=== PATIENT | female | born 1940 | race Native Hawaiian/Other Pacific Islander ===

== ENCOUNTER 2016-12-24 16:21 | Emergency (ER) | payer OTHER ==
[~2016-12-24] VITALS: Ht 162.6 cm; Wt 83.9 kg
[2016-12-24 17:02] LABS: PLATELET COUNT 290 K/uL (152-353)
[2016-12-24 17:11] LABS: POTASSIUM 3.7 mmol/L (3.6-5.2)
[2016-12-24 18:35] VITALS: BP 96/55; TEMP 97.9
== END 2016-12-24 18:35 | disposition home or self-care (01) ==
LOC: ED 16:21
PROVIDERS: Emergency Medicine
DX: S20.212A Contusion of left front wall of thorax, initial encounter (principal); S20.211A Contusion of right front wall of thorax, initial encounter; S50.812A Abrasion of left forearm, initial encounter; R00.1 Bradycardia, unspecified; V43.62XA Car passenger injured in collision with other type car in traffic accident, initial encounter; Y92.89 Other specified places as the place of occurrence of the external cause
CPT/HCPCS: 36415; 80053; 82550; 84484; 85027; 85610; 93005; 99283

== ENCOUNTER 2017-12-21 10:08 | Outpatient (CLI) | payer OTHER | END 2017-12-21 21:39 | disposition home or self-care (01) | LOC: LABW 10:08 | DX: Z79.01 Long term (current) use of anticoagulants (principal) | CPT/HCPCS: 36415; 85610 ==

== ENCOUNTER 2018-01-21 10:44 | Outpatient (CLI) | payer OTHER | END 2018-01-21 22:09 | disposition home or self-care (01) | LOC: LABW 10:44 | DX: Z79.01 Long term (current) use of anticoagulants (principal) | CPT/HCPCS: 36415; 85610 ==

== ENCOUNTER 2018-02-25 10:50 | Outpatient (CLI) | payer OTHER | END 2018-02-25 19:41 | disposition home or self-care (01) | LOC: LABW 10:50 | DX: Z79.01 Long term (current) use of anticoagulants (principal) | CPT/HCPCS: 36415; 85610 ==

== ENCOUNTER 2018-03-30 10:10 | Outpatient (CLI) | payer OTHER | END 2018-03-30 21:05 | disposition home or self-care (01) | LOC: LABW 10:10 | DX: Z79.01 Long term (current) use of anticoagulants (principal) | CPT/HCPCS: 36415; 85610 ==

== ENCOUNTER 2018-04-22 10:09 | Outpatient (CLI) | payer OTHER ==
[2018-04-22 10:58] LABS: PLATELET COUNT 282 K/uL (152-353)
[2018-04-22 11:01] LABS: POTASSIUM 4.1 mmol/L (3.6-5.2)
[2018-04-22 12:13] LABS: PARTIAL THROMBOPLASTIN TIME 44.3 SECONDS (24.5-33.6)
== END 2018-04-22 21:43 | disposition home or self-care (01) ==
LOC: LABW 10:09
PROVIDERS: Radiology Diagnostic Radiology
DX: Z01.811 Encounter for preprocedural respiratory examination (principal); Z01.810 Encounter for preprocedural cardiovascular examination; I82.523 Chronic embolism and thrombosis of iliac vein, bilateral
CPT/HCPCS: 36415; 80048; 85027; 85610; 85730; 93005

== ENCOUNTER 2019-10-12 08:15 | Outpatient (CLI) | payer OTHER ==
[~2019-10-12 08:15] MED LIST: B121000 MCG PO; ELIQUIS5 MG PO; FELO5TAB PO; FOLIC ACID800 MC1 PO; FURO40TA93 PO; HYZAAR1 TA2 PO; LEVO0.1T6 PO; METO100T37 PO; OMEP40CA PO; ROSU10TA PO; ST JOSEPH LOW D81 MG PO
== END 2019-10-12 19:15 | disposition home or self-care (01) ==
LOC: US 08:15
DX: R10.13 Epigastric pain (principal)

== ENCOUNTER 2019-10-24 08:11 | Outpatient (CLI) | payer OTHER | END 2019-10-24 19:21 | disposition home or self-care (01) | LOC: CT 08:11 | DX: R10.11 Right upper quadrant pain (principal) ==

== ENCOUNTER 2019-11-08 19:16 | Emergency (ER) | payer OTHER ==
[~2019-11-08] VITALS: Ht 162.6 cm; Wt 83.9 kg
[2019-11-08 23:02] LABS: PLATELET COUNT 303 K/uL (152-353)
[2019-11-08 23:49] LABS: PARTIAL THROMBOPLASTIN TIME 25.6 SECONDS (24.5-33.6)
[2019-11-08 23:59] VITALS: BP 141/46; TEMP 98.9
== END 2019-11-08 23:59 | disposition short-term general hospital (02) ==
LOC: ED 19:16
PROVIDERS: Emergency Medicine Emergency Medical Services
DX: S06.320A Contusion and laceration of left cerebrum without loss of consciousness, initial encounter (principal); S60.943A Unspecified superficial injury of left middle finger, initial encounter; S60.947A Unspecified superficial injury of left little finger, initial encounter; S60.945A Unspecified superficial injury of left ring finger, initial encounter; Z79.02 Long term (current) use of antithrombotics/antiplatelets; Z51.81 Encounter for therapeutic drug level monitoring; W01.198A Fall on same level from slipping, tripping and stumbling with subsequent striking against other object, initial encounter; Y92.89 Other specified places as the place of occurrence of the external cause
CPT/HCPCS: 36415; 80053; 85027; 85610; 85730; 99283

== ENCOUNTER 2019-11-30 22:09 | Emergency (ER) | payer OTHER ==
[~2019-11-30] VITALS: Ht 162.6 cm; Wt 83.9 kg
[2019-11-30 23:03] LABS: PLATELET COUNT 332 K/uL (152-353)
[2019-11-30 23:07] LABS: POTASSIUM 4.1 mmol/L (3.6-5.2)
[2019-12-01 00:27] VITALS: BP 152/50; TEMP 97.9
== END 2019-12-01 00:27 | disposition home or self-care (01) ==
LOC: ED 22:09
PROVIDERS: Emergency Medicine
DX: K82.8 Other specified diseases of gallbladder (principal)
CPT/HCPCS: 36415; 80053; 82150; 82550; 82553; 83690; 84484; 85027; 93005; 96374; 96375; 99284; J1885; J2175; J2405

== ENCOUNTER 2019-12-03 15:09 | Emergency (ER) | payer OTHER ==
[~2019-12-03] VITALS: Ht 162.6 cm; Wt 83.9 kg
[2019-12-03 15:20] VITALS: TEMP 98.9
[2019-12-03 17:02] LABS: PLATELET COUNT 300 K/uL (152-353)
[2019-12-03 17:12] LABS: POTASSIUM 3.6 mmol/L (3.6-5.2)
[2019-12-03 18:00] VITALS: BP 135/69
== END 2019-12-03 18:00 | disposition home or self-care (01) ==
LOC: ED 15:09
PROVIDERS: Family Medicine
DX: K80.20 Calculus of gallbladder without cholecystitis without obstruction (principal)
CPT/HCPCS: 36415; 80053; 82150; 83690; 85027; 93005; 96374; 99284; J2270

== ENCOUNTER 2019-12-22 08:09 | Outpatient (CLI) | payer OTHER ==
[2019-12-22 09:25] LABS: POTASSIUM 3.3 mmol/L (3.6-5.2)
[2019-12-22 10:25] LABS: PLATELET COUNT 526 K/uL (152-353)
== END 2019-12-22 21:02 | disposition home or self-care (01) ==
LOC: LABW 08:09
PROVIDERS: Internal Medicine
DX: I10 Essential (primary) hypertension (principal); E03.8 Other specified hypothyroidism; E53.8 Deficiency of other specified B group vitamins; E61.1 Iron deficiency
CPT/HCPCS: 36415; 80048; 80061; 80076; 82306; 82728; 82746; 82747; 83540; 83550; 84443; 84466; 85027

== ENCOUNTER 2020-01-18 08:24 | Outpatient (CLI) | payer OTHER ==
[2020-01-18 08:56] LABS: POTASSIUM 3.5 mmol/L (3.6-5.2)
[2020-01-18 10:15] LABS: PLATELET COUNT 321 K/uL (152-353)
== END 2020-01-18 20:10 | disposition home or self-care (01) ==
LOC: LABW 08:24
PROVIDERS: Internal Medicine
DX: N18.3 Chronic kidney disease, stage 3 (moderate) (principal)
CPT/HCPCS: 36415; 80053; 81000; 82330; 82570; 83735; 83970; 84100; 84155; 85027

== ENCOUNTER 2020-04-16 08:26 | Outpatient (CLI) | payer OTHER ==
[2020-04-16 09:29] LABS: POTASSIUM 4.4 mmol/L (3.6-5.2)
== END 2020-04-16 21:23 | disposition home or self-care (01) ==
LOC: LABW 08:26
PROVIDERS: ATTEND Nurse Practitioner
DX: N18.30 Chronic kidney disease, stage 3 unspecified (principal); D63.1 Anemia in chronic kidney disease
CPT/HCPCS: 36415; 80053; 81000; 82306; 82330; 82570; 83735; 83970; 84100; 84155

== ENCOUNTER 2020-04-24 11:42 | Outpatient (CLI) | payer OTHER | END 2020-04-24 19:15 | disposition home or self-care (01) | LOC: RAD 11:42 | PROVIDERS: ATTEND Internal Medicine | DX: R06.09 Other forms of dyspnea (principal) ==

== ENCOUNTER 2020-05-02 09:39 | Outpatient (CLI) | payer OTHER | END 2020-05-02 20:01 | disposition home or self-care (01) | LOC: RESP 09:39 | PROVIDERS: ATTEND Internal Medicine | DX: I87.309 Chronic venous hypertension (idiopathic) without complications of unspecified lower extremity (principal); R06.02 Shortness of breath ==

== ENCOUNTER 2020-06-18 08:17 | Outpatient (CLI) | payer OTHER ==
[2020-06-18 08:41] LABS: PLATELET COUNT 289 K/uL (152-353)
[2020-06-18 12:59] LABS: POTASSIUM 4.5 mmol/L (3.6-5.2)
== END 2020-06-18 19:26 | disposition home or self-care (01) ==
LOC: LABW 08:17
PROVIDERS: ATTEND Internal Medicine
DX: N18.32 Chronic kidney disease, stage 3b (principal); D63.1 Anemia in chronic kidney disease
CPT/HCPCS: 36415; 80053; 81000; 82306; 82330; 82570; 82607; 82728; 82746; 83550; 83735; 83970; 84100; 84155; 85027

== ENCOUNTER 2020-10-15 08:31 | Outpatient (CLI) | payer OTHER ==
[2020-10-15 08:59] LABS: PLATELET COUNT 312 K/uL (152-353)
[2020-10-15 09:44] LABS: POTASSIUM 5.3 mmol/L (3.6-5.2)
== END 2020-10-15 19:53 | disposition home or self-care (01) ==
LOC: LABW 08:31
PROVIDERS: ATTEND Internal Medicine
DX: N18.32 Chronic kidney disease, stage 3b (principal); D63.1 Anemia in chronic kidney disease; E53.8 Deficiency of other specified B group vitamins
CPT/HCPCS: 36415; 80053; 81000; 82306; 82330; 82570; 82607; 82728; 82746; 83540; 83550; 83735; 83970; 84100; 84155; 85027

== ENCOUNTER 2021-02-13 08:43 | Outpatient (CLI) | payer OTHER ==
[2021-02-13 09:29] LABS: PLATELET COUNT 309 K/uL (152-353)
[2021-02-13 10:35] LABS: POTASSIUM 3.9 mmol/L (3.6-5.2)
== END 2021-02-13 20:03 | disposition home or self-care (01) ==
LOC: LABW 08:43
PROVIDERS: ATTEND Internal Medicine
DX: N18.32 Chronic kidney disease, stage 3b (principal); D63.1 Anemia in chronic kidney disease; R06.09 Other forms of dyspnea; E53.8 Deficiency of other specified B group vitamins
CPT/HCPCS: 36415; 80053; 81000; 82306; 82330; 82570; 82607; 82728; 82746; 83540; 83550; 83735; 83880; 83970; 84100; 84155; 85027

== ENCOUNTER 2021-03-17 06:05 | Observation (INO) | payer OTHER ==
[2021-03-17] VITALS (10 sets, daily range): BP systolic 107–151; BP diastolic 50–63; TEMP 97.5–99; Ht 162.6 cm; Wt 73.6 kg
[~2021-03-17] VITALS: Ht 162.6 cm; Wt 73.6 kg
[2021-03-17 06:30] LABS: PLATELET COUNT 352 K/uL (152-353)
[2021-03-17 06:37] LABS: POTASSIUM 3.2 mmol/L (3.6-5.2)
[2021-03-17 06:47] LABS: PARTIAL THROMBOPLASTIN TIME 26.8 SECONDS (24.5-33.6)
[2021-03-18] VITALS: BP 124/71; TEMP 98.6
[2021-03-18 03:58] VITALS: BP 110/56; TEMP 98.4
[2021-03-18 05:46] LABS: PLATELET COUNT 268 K/uL (152-353)
[2021-03-18 06:11] LABS: POTASSIUM 3.2 mmol/L (3.6-5.2)
[2021-03-18 08:00] VITALS: BP 145/52; TEMP 98.2
[2021-03-18 12:00] VITALS: BP 126/52; TEMP 98.1
== END 2021-03-18 15:42 | disposition home or self-care (01) ==
LOC: ED 06:05 → MED/SURG 06:55
PROVIDERS: Hospitalist; ADMIT Internal Medicine; ATTEND Internal Medicine
DX: R07.89 Other chest pain (principal); E03.8 Other specified hypothyroidism; I48.91 Unspecified atrial fibrillation; K21.9 Gastro-esophageal reflux disease without esophagitis; F41.0 Panic disorder [episodic paroxysmal anxiety]; I11.0 Hypertensive heart disease with heart failure; I50.9 Heart failure, unspecified; E53.8 Deficiency of other specified B group vitamins
CPT/HCPCS: 36415; 80048; 80053; 80320; 81000; 82550; 83880; 84484; 85027; 85610; 85730; 87635; 93005; 96372; 96374; 96375; 99220; 99284; G0378; J1650; J1940; J3410; U0003

== ENCOUNTER 2021-12-05 09:38 | Outpatient (CLI) | payer OTHER | END 2021-12-05 20:55 | disposition home or self-care (01) | LOC: MRI 09:38 | PROVIDERS: ATTEND Orthopaedic Surgery | DX: M25.561 Pain in right knee (principal); M17.11 Unilateral primary osteoarthritis, right knee; M54.59 Other low back pain; M54.16 Radiculopathy, lumbar region ==

== ENCOUNTER 2021-12-29 03:50 | Emergency (ER) | payer OTHER ==
[~2021-12-29] VITALS: Ht 162.6 cm; Wt 73.5 kg
[2021-12-29 04:00] VITALS: TEMP 98.2
[2021-12-29 04:36] LABS: PLATELET COUNT 250 K/uL (152-353)
[2021-12-29 04:38] LABS: POTASSIUM 3.9 mmol/L (3.6-5.2)
[2021-12-29 04:53] LABS: PARTIAL THROMBOPLASTIN TIME 28.5 SECONDS (24.5-33.6)
[2021-12-29 07:28] LABS: POTASSIUM 3.8 mmol/L (3.6-5.2)
[2021-12-29 08:13] VITALS: BP 130/57
== END 2021-12-29 08:23 | disposition home or self-care (01) ==
LOC: ED 03:50
PROVIDERS: Family Medicine
DX: R07.89 Other chest pain (principal); F41.8 Other specified anxiety disorders; E87.1 Hypo-osmolality and hyponatremia
CPT/HCPCS: 80048; 80053; 81002; 82550; 84484; 85027; 85610; 85730; 93005; 96360; 96374; 96376; 99284; J3360

== ENCOUNTER → 2022-03-04 | Outpatient (CLI) | payer OTHER | LOC: LABW 07:43 | PROVIDERS: ATTEND Internal Medicine | DX: N18.32 Chronic kidney disease, stage 3b (principal); D63.1 Anemia in chronic kidney disease; E53.8 Deficiency of other specified B group vitamins | CPT/HCPCS: 36415; 80053; 81002; 82306; 82330; 82570; 82607; 82746; 83735; 83970; 84100; 84156 ==

== ENCOUNTER 2022-04-25 10:30 | Emergency (ER) | payer OTHER ==
[~2022-04-25] VITALS: Ht 162.6 cm; Wt 68.0 kg
[2022-04-25 10:30] VITALS: BP 163/45; TEMP 97.7
== END 2022-04-25 12:20 | disposition home or self-care (01) ==
LOC: ED 10:30
PROC: 2W3DX1Z Immobilization of Left Lower Arm using Splint (ICD-10-PCS; principal; 2022-04-25)
DX: S52.592A Other fractures of lower end of left radius, initial encounter for closed fracture (principal); S52.612A Displaced fracture of left ulna styloid process, initial encounter for closed fracture; S00.12XA Contusion of left eyelid and periocular area, initial encounter; I67.89 Other cerebrovascular disease; W18.39XA Other fall on same level, initial encounter; Y92.098 Other place in other non-institutional residence as the place of occurrence of the external cause
CPT/HCPCS: 99283; J2270; J2405

== ENCOUNTER 2022-04-27 11:11 | Emergency (ER) | payer OTHER ==
[~2022-04-27] VITALS: Ht 162.6 cm; Wt 68.0 kg
[2022-04-27 11:11] VITALS: TEMP 98
[2022-04-27 13:06] VITALS: BP 149/52
== END 2022-04-27 13:08 | disposition home or self-care (01) ==
LOC: ED 11:11
DX: H53.8 Other visual disturbances (principal); W18.39XD Other fall on same level, subsequent encounter; Y92.098 Other place in other non-institutional residence as the place of occurrence of the external cause
CPT/HCPCS: 99283

== ENCOUNTER 2022-05-28 08:46 | Outpatient (CLI) | payer OTHER ==
[2022-05-28 09:11] LABS: PLATELET COUNT 272 K/uL (152-353)
[2022-05-28 09:45] LABS: POTASSIUM 3.1 mmol/L (3.6-5.2)
== END 2022-05-28 19:50 | disposition home or self-care (01) ==
LOC: LABW 08:46
PROVIDERS: ATTEND Internal Medicine
DX: I10 Essential (primary) hypertension (principal); E03.8 Other specified hypothyroidism; E53.8 Deficiency of other specified B group vitamins; D61.1 Drug-induced aplastic anemia; E83.51 Hypocalcemia; D75.89 Other specified diseases of blood and blood-forming organs; E87.6 Hypokalemia; R79.89 Other specified abnormal findings of blood chemistry
CPT/HCPCS: 36415; 80048; 80061; 80076; 82306; 82728; 82746; 82747; 83540; 83550; 84443; 84466; 85027; 85652

== ENCOUNTER 2022-07-24 06:00 | Emergency (ER) | payer OTHER ==
[~2022-07-24] VITALS: Ht 162.6 cm; Wt 65.8 kg
[2022-07-24 06:10] VITALS: TEMP 97.1
[2022-07-24 08:16] VITALS: BP 168/74
== END 2022-07-24 08:19 | disposition home or self-care (01) ==
LOC: ED 06:00
PROC: 2W3CX1Z Immobilization of Right Lower Arm using Splint (ICD-10-PCS; principal; 2022-07-24)
DX: S00.03XA Contusion of scalp, initial encounter (principal); S52.531A Colles' fracture of right radius, initial encounter for closed fracture; S52.614A Nondisplaced fracture of right ulna styloid process, initial encounter for closed fracture; W01.190A Fall on same level from slipping, tripping and stumbling with subsequent striking against furniture, initial encounter; Y92.89 Other specified places as the place of occurrence of the external cause
CPT/HCPCS: 99283

== ENCOUNTER 2022-08-26 09:05 | Outpatient (CLI) | payer OTHER ==
[2022-08-26 09:38] LABS: PLATELET COUNT 231 K/uL (152-353)
[2022-08-26 09:47] LABS: POTASSIUM 4.1 mmol/L (3.6-5.2)
== END 2022-08-26 18:56 | disposition home or self-care (01) ==
LOC: LABW 09:05
PROVIDERS: ATTEND Internal Medicine
DX: I12.9 Hypertensive chronic kidney disease with stage 1 through stage 4 chronic kidney disease, or unspecified chronic kidney disease (principal); N18.32 Chronic kidney disease, stage 3b; E03.8 Other specified hypothyroidism; E53.8 Deficiency of other specified B group vitamins; E61.1 Iron deficiency; D75.89 Other specified diseases of blood and blood-forming organs; E87.6 Hypokalemia
CPT/HCPCS: 36415; 80053; 80061; 80076; 81000; 82043; 82306; 82570; 82728; 82746; 82747; 83540; 83550; 83735; 84100; 84156; 84443; 84466; 85027; 85652

== ENCOUNTER 2022-12-09 07:20 | Outpatient (CLI) | payer OTHER ==
[2022-12-09 08:02] LABS: PLATELET COUNT 233 K/uL (152-353)
[2022-12-09 08:16] LABS: POTASSIUM 4.5 mmol/L (3.6-5.2)
== END 2022-12-09 20:20 | disposition home or self-care (01) ==
LOC: LABW 07:20
PROVIDERS: ATTEND Internal Medicine
DX: I10 Essential (primary) hypertension (principal); E03.8 Other specified hypothyroidism; E53.8 Deficiency of other specified B group vitamins; D75.89 Other specified diseases of blood and blood-forming organs; E87.6 Hypokalemia; E61.1 Iron deficiency; E55.9 Vitamin D deficiency, unspecified
CPT/HCPCS: 36415; 80048; 80061; 80076; 82306; 82728; 82746; 82747; 83540; 83550; 84443; 84466; 85027; 85652

== ENCOUNTER 2022-12-19 14:18 | Emergency (ER) | payer OTHER ==
[~2022-12-19] VITALS: Ht 162.6 cm; Wt 70.3 kg
[2022-12-19 17:07] LABS: PLATELET COUNT 258 K/uL (152-353)
[2022-12-19 17:18] LABS: POTASSIUM 3.4 mmol/L (3.6-5.2)
[2022-12-19 17:23] LABS: PARTIAL THROMBOPLASTIN TIME 33.4 SECONDS (23.9-36.7)
[2022-12-19 18:10] VITALS: BP 204/77; TEMP 98
== END 2022-12-19 18:10 | disposition short-term general hospital (02) ==
LOC: ED 14:18
PROVIDERS: Family Medicine
DX: S12.9XXA Fracture of neck, unspecified, initial encounter (principal); S09.90XA Unspecified injury of head, initial encounter; S01.91XA Laceration without foreign body of unspecified part of head, initial encounter; W01.0XXA Fall on same level from slipping, tripping and stumbling without subsequent striking against object, initial encounter
CPT/HCPCS: 36415; 80053; 85027; 85610; 85730; 96374; 99285; J3010

== ENCOUNTER 2022-12-23 15:14 | Inpatient (IN) | payer OTHER | END 2023-01-02 18:15 | disposition still patient (30) | LOC: PAVA 15:14 → PAVB 12-24 13:15 | PROVIDERS: ADMIT Internal Medicine; ATTEND Internal Medicine | DX: S12.101D Unspecified nondisplaced fracture of second cervical vertebra, subsequent encounter for fracture with routine healing (principal); S02.113D Unspecified occipital condyle fracture, subsequent encounter for fracture with routine healing; S52.501D Unspecified fracture of the lower end of right radius, subsequent encounter for closed fracture with routine healing; M62.81 Muscle weakness (generalized); R26.2 Difficulty in walking, not elsewhere classified; R41.841 Cognitive communication deficit; Z74.1 Need for assistance with personal care | CPT/HCPCS: 87081 ==

== ENCOUNTER 2023-01-02 19:03 | Inpatient (IN) | payer OTHER | END 2023-01-10 13:00 | disposition home or self-care (01) | LOC: PAVB 19:03 | PROVIDERS: ADMIT Internal Medicine; ATTEND Internal Medicine | DX: S12.101D Unspecified nondisplaced fracture of second cervical vertebra, subsequent encounter for fracture with routine healing (principal); S02.113D Unspecified occipital condyle fracture, subsequent encounter for fracture with routine healing; S52.501D Unspecified fracture of the lower end of right radius, subsequent encounter for closed fracture with routine healing; M62.81 Muscle weakness (generalized); R26.2 Difficulty in walking, not elsewhere classified; R41.841 Cognitive communication deficit; Z74.1 Need for assistance with personal care ==

== ENCOUNTER 2023-01-20 08:36 | Outpatient (CLI) | payer OTHER ==
[2023-01-20 08:56] LABS: PLATELET COUNT 226 K/uL (152-353)
[2023-01-20 09:15] LABS: POTASSIUM 4.3 mmol/L (3.6-5.2)
== END 2023-01-20 20:43 | disposition home or self-care (01) ==
LOC: LABW 08:36
PROVIDERS: ATTEND Internal Medicine
DX: I10 Essential (primary) hypertension (principal); E03.8 Other specified hypothyroidism
CPT/HCPCS: 36415; 80053; 80061; 81000; 84439; 84443; 85027

== ENCOUNTER 2023-01-22 10:19 | Outpatient (CLI) | payer OTHER | END 2023-01-22 19:36 | disposition home or self-care (01) | LOC: CT 10:19 | PROVIDERS: ATTEND Internal Medicine | DX: S12.9XXD Fracture of neck, unspecified, subsequent encounter (principal); Y92.89 Other specified places as the place of occurrence of the external cause ==